=== PATIENT | male | born 1945 | race Caucasian/White ===

== ENCOUNTER 2018-02-04 15:23 | Emergency (ER) | END 2018-02-04 21:55 | disposition home or self-care (01) ==

== ENCOUNTER 2018-04-20 08:21 | Day surgery (SDC) | END 2018-04-20 11:18 | disposition home or self-care (01) ==

== ENCOUNTER 2018-06-26 13:56 | Inpatient (IN) | END 2018-06-28 18:15 | disposition home health service (06) | DRG 871 ==